=== PATIENT | male | born 1985 | race Caucasian/White ===

== ENCOUNTER 2021-10-10 17:58 | Emergency (ER) | payer OTHER ==
[2021-10-10] MEDS ORDERED: IBUPROFEN800 MG PO (19:44)
== END 2021-10-10 19:25 | disposition home or self-care (01) ==
LOC: ER1 17:58
DX: S30.0XXA Contusion of lower back and pelvis, initial encounter (principal); I10 Essential (primary) hypertension; W19.XXXA Unspecified fall, initial encounter
CPT/HCPCS: 72100; 72220; 99283